=== PATIENT | female | born 1945 | race Caucasian/White ===

== ENCOUNTER → 2016-11-19 | Outpatient (CLI) | payer MEDICARE, BC ==
[~2016-11-19] MED LIST: EC-NAPROSYN500 MG PO; LISINOPRIL PO; NORVASC PO; SYNTHROID PO
--- NOTE | ~2016-11-19 | MR83 ---
[facility] A Service of [facility] & [facility] RADIOLOGY TEXT RESULTS PATIENT: JENNA VICTOR LOCATION: [facility] : 47 UNIT #: [id number] AGE: [address]: Bartolo Caballero MD SEX: F ORDER DR: [id number] [address] [address] [id number] O MR#: [id number] #: [id number] NAME: JENNA VICTOR : 1945 SEX: F STUDY DATE/TIME: 11/19/2016 10:01 UNIT: [facility] ROOM: STUDY DESCRIPTION: MR Hip Wo Contrast Lt Attending Physician: Bartolo Caballero M.D. Referring Physician: Bartolo Caballero M.D. Ordering Physician: Spike Mora M.D. Primary Care Physician: Spike Mora M.D. MRI CENTER REPORT This report is preliminary unless electronic signature is present. EXAM MRI left hip and pelvis HISTORY 71-year-old female; increasing left hip pain. No known injury. TECHNIQUE Multiplanar, multiecho imaging was performed of the hips and pelvis utilizing a high field magnet and dedicated protocol. FINDINGS Examination demonstrates a small left hip effusion with marrow edema along the weightbearing aspect of the left femoral head. Small amount of edema also noted along the margin of the left acetabulum. Findings most likely reflect underlying osteoarthritis with mild active synovitis. No erosions. No evidence of fracture. Mild arthritic changes in the right hip with a small amount of subchondral cystic change and edema, anterior aspect of the right hip. There is a degeneration of the anterior labrum of the right hip. The left hip labrum also demonstrates a degenerative tear of the anterosuperior labrum. Small amount of edema within the left adductor musculature may represent a component of adductor strain. No high-grade muscle injury. Normal tendinous attachments about the pelvis. Internal pelvic structures unremarkable except for a probable small uterine fibroid. Mild degenerative changes, lower lumbar spine. SI joints unremarkable. IMPRESSION 1. Degenerative arthropathy of both hips, left greater than right. Marrow edema along the weightbearing aspect of the left femoral head may indicate some active inflammation. There is also a hip effusion compatible with active synovitis. Again, this most likely represents an active inflammatory phase of osteoarthritis. No evidence of an STS. [facility] A Service of [facility] RADIOLOGY TEXT RESULTS PATIENT: JENNA VICTOR LOCATION: [facility] : 47 UNIT #: [id number] AGE: [address]: Bartolo Caballero MD SEX: F ORDER DR: inflammatory arthropathy. No findings to suggest a septic arthritis. 2. This is also in combination with a degenerative tear of the superior labrum. Similar, but less pronounced, arthritic change is seen in the right hip. 3. Small amount of nonspecific muscle edema within the left adductor musculature could reflect a low grade muscle strain. Dictated by... Sana Gomez M.D. THIS IS AN ELECTRONICALLY VERIFIED REPORT Sana Gomez M.D. at 11/20/2016 4:03 PM Helga TD: 11/19/2016 16:10 JOB #: [id number] MRI CENTER REPORT Page 1 of 1
[2016-11-19 09:31] LABS: BASOPHIL# 0.1 X10e3 (0-0.3); BASOPHIL% 1.2 % (0-2.5); EOSINOPHIL# 0.2 X10e3 (0-0.7); EOSINOPHIL% 2.8 % (0.0-7.0); HEMATOCRIT 38.2 % (35.0-45.0); HEMOGLOBIN 12.8 gm/dL (12.0-16.0); LYMPHOCYTE% 31.6 % (17.0-45.0); MEAN CELL VOLUME 94.3 FL (83-96); MEAN CORPUSCULAR HEMOGLOBIN 31.7 PG (28-34); MEAN CORPUSCULAR HGB CONC 33.6 g/dL (30-36); MEAN PLATELET VOLUME 8.2 FL (6.5-11.5); MONOCYTE# 0.3 X10e3 (0-1.0); MONOCYTE% 4.8 % (3.0-12.0); NEUTROPHIL# 3.7 X10e3 (1.5-7.1); NEUTROPHIL% 59.6 % (40-75); PLATELET COUNT 296 X10e3 (140-420); RED BLOOD COUNT 4.05 X10e (3.90-5.30); RED CELL DISTRIBUTION WIDTH 12.8 % (11.0-15.5); WHITE BLOOD COUNT 6.2 X10e3 (4.0-10.5)
[2016-11-19 10:20] LABS: DIFF IND NO
[2016-11-19 11:59] LABS: SEDIMENTATION RATE-SW ONLY 30 mm/hr (0-45)
== END | disposition home or self-care (01) ==
LOC: SMRI 09:11
PROVIDERS: Orthopaedic Surgery
DX: M25.552 Pain in left hip (principal); M16.0 Bilateral primary osteoarthritis of hip; R60.0 Localized edema; S73.102A Unspecified sprain of left hip, initial encounter
CPT/HCPCS: 36415; 73721; 85025; 85651; 86140